=== PATIENT | male | born 1980 | race Caucasian/White ===

== ENCOUNTER 2018-05-21 21:44 | Emergency (ER) | payer OTHER ==
[2018-05-21 21:54] VITALS: RESP 18; O2SAT 98
[2018-05-21] MEDS ORDERED: Oxymetazoline 0.05% Nasal Spray (30 ml) NS STA (22:18)
--- NOTE | 2018-05-21 22:21 | ED PDOC ---
Arrival/HPI - General Chief Complaint: ENT Problem Time Seen by Provider: 05/21/18 22:17 Historian: Patient - History of Present Illness Narrative History of Present Illness (Text): 38yo male, no past medical history, presents to ER for evaluation of nose bleed after he tripped and fell down one stair and landed on his face. Patient denies any loss of consciousness, nausea, vomiting, or recent anticoagulant use. He reports he is concerned about a nasal fracture. He denies any vision changes, other facial injury, neck pain, and offers no other medical complaints. Time/Duration: Prior to Arrival Symptom Onset: Sudden Context: Walking Past Medical History - Provider Review Nursing Documentation Reviewed: Yes - Travel History Have you recently traveled outside [place] w/in the past 3 mons?: No - Past History Past History: No Previous - Infectious Disease Hx of Infectious Diseases: None - Psychiatric Hx Substance Use: No - Anesthesia Hx Anesthesia: No Family/Social History - Physician Review Nursing Documentation Reviewed: Yes Family/Social History: No Known Family HX Smoking Status: Never Smoked Hx Alcohol Use: Yes Frequency of alcohol use: Socially Hx Substance Use: No Allergies/Home Meds Allergies/Adverse Reactions: Allergies No Known Allergies Allergy (Verified 05/21/18 21:50) Home Medications: Home Meds Medication Instructions Recorded Confirmed No Known Home Med 05/21/18 05/21/18 Review of Systems - Physician Review All systems were reviewed & negative as marked: Yes - Review of Systems Eyes: absent: Vision Changes ENT: Epistaxis Gastrointestinal: absent: Nausea, Vomiting Musculoskeletal: absent: Neck Pain Neurological: absent: Other (loss of consciousness) Physical Exam Vital Signs Reviewed: Yes Vital Signs Temp Pulse Resp BP Pulse Ox 05/21/18 22:30 98.9 F 82 18 146/90 98 05/21/18 21:50 99 F 87 18 149/95 H 98 Temperature: Afebrile Blood Pressure: Normal Pulse: Regular Respiratory Rate: Normal Appearance: Positive for: Well-Appearing, Non-Toxic, Comfortable Pain Distress: None Mental Status: Positive for: Alert and Oriented X 3 - Systems Exam Head: Present: Atraumatic, Normocephalic Pupils: Present: PERRL Extroacular Muscles: Present: EOMI Conjunctiva: Present: Normal Ears: Present: NORMAL TM Mouth: Present: Moist Mucous Membranes Nose (External): No: Contusion, Laceration Nose (Internal): Present: No Active Bleeding, Septal Deviation (mild septal deviation noted, patient states this is present at baseline), Epistaxis (dried blood noted to bilateral nares.). No: Septal Hematoma Neck: Present: Normal Range of Motion. No: MIDLINE TENDERNESS, Paraspinal Tenderness Respiratory/Chest: Present: Clear to Auscultation, Good Air Exchange. No: Respiratory Distress, Accessory Muscle Use Cardiovascular: Present: Regular Rate and Rhythm, Normal S1, S2. No: Murmurs Medical Decision Making ED Course and Treatment: Impression: 38yo male with nasal injury s/p trip and fall Plan: -- Affrin 2ml NS Patient instructed on nose bleed care and given referral to follow up with ENT specialist. - Medication Orders Current Medication Orders: Discontinued Medications Oxymetazoline HCl (Afrin 0.05%) 2 ml NS STAT STA Stop: 05/21/18 22:19 Last Admin: 05/21/18 22:29 Dose: 2 ml - Scribe Statement The provider has reviewed the documentation as recorded by the Loyd Reynolds Provider Scribe Attestation: All medical record entries made by the Scribe were at my direction and personally dictated by me. I have reviewed the chart and agree that the record accurately reflects my personal performance of the history, physical exam, medical decision making, and the department course for this patient. I have also personally directed, reviewed, and agree with the discharge instructions and disposition. Disposition/Present on Arrival - Present on Arrival Any Indicators Present on Arrival: No History of DVT/PE: No History of Uncontrolled Diabetes: No Urinary Catheter: No History of Decub. Ulcer: No History Surgical Site Infection Following: None - Disposition Have Diagnosis and Disposition been Completed?: Yes Diagnosis: Nasal bone fracture Disposition: HOME/ ROUTINE Disposition Time: 23:00 Patient Plan: Discharge Condition: IMPROVED Discharge Instructions (ExitCare): Nose Fracture (DC) Referrals: PCP,NO [Primary Care Provider] - Follow up with primary Miko Butler DO [[facility]] - 05/25/18 Forms: [facility] (Khmer)
[2018-05-21 22:33] VITALS: BP 146/90; PULSE 82; TEMP 98.9
== END 2018-05-21 22:33 | disposition home or self-care (01) ==
LOC: ED 21:44
DX: S02.2XXA Fracture of nasal bones, initial encounter for closed fracture (principal); W01.0XXA Fall on same level from slipping, tripping and stumbling without subsequent striking against object, initial encounter